=== PATIENT | male | born 1970 | race African-American/Black ===

== ENCOUNTER 2016-11-23 08:24 | Inpatient (IN) | payer MEDICAID ==
[~2016-11-23] VITALS: Ht 182.9 cm; Wt 116.4 kg
[2016-11-23] VITALS (30 sets, daily range): BP systolic 92–170; BP diastolic 37–128
[~2016-11-23 08:24] MED LIST: ALBUAER3 IN; BECL0.07 INH; FURO20TA PO; GUA5DMLQ PO; LEVO500T3 PO; METH4PAK PO; MONT10TA23 PO
[2016-11-23] MEDS ORDERED: IPRATROPIUM BROM 0.5 MG/2.5ML INH SOL NEB ONE (08:45)
[2016-11-23] MEDS ORDERED: ALBUTEROL SULF 2.5 MG/0.5ML(0.5%) NEB SOLN NEB ONE ×2 (08:45→12:45)
[2016-11-23] MEDS ORDERED: methylPREDNISolone SOD SUCC 125 MG/2 ML VL IV ONE (08:45)
[2016-11-23 08:54] LABS: Eosinophils # (auto) 0 uL; Eosinophils % (auto) 0.2 % (0.0-7.0); Monocytes # (auto) 0.1 uL; Platelet Count (auto) 232 10^3/uL (140-450)
[2016-11-23] MEDS ORDERED: cefTRIAXone 1GM/50ML D5W 50 ML IV ONE (09:00)
[2016-11-23 09:01] LABS: Basophils # (auto) 0.2 uL; Basophils % (auto) 1.6 % (0.0-2.0); Hematocrit 51.8 % (41.0-53.0); Hemoglobin 16.4 g/dL (13.5-17.5); Lymphocytes # (auto) 0.5 uL; Lymphocytes % (auto) 3.9 % (10.0-50.0); Mean Corpuscular Hemoglobin 28.3 pg (28.0-32.0); Mean Corpuscular Hgb Conc. 31.8 g/dL (32.0-36.0); Mean Platelet Volume 9.3 fL (7.4-10.4); Monocytes % (auto) 0.6 % (0.0-12.0); Neutrophils # (auto) 10.8 uL; Neutrophils % (auto) 93.7 % (37.0-80.0); SUSPECT VIEW TRANSMISSION; White Blood Cell 11.5 10^3/uL (4.4-10.8)
[2016-11-23 09:15] LABS: Albumin 4.1 g/dL (3.4-5.0); Anion Gap 7 (5-15); Aspartate Aminotransferase 13 U/L (15-37); BUN/Creatinine Ratio 14.4; Blood Urea Nitrogen 13 mg/dL (7-18); Carbon Dioxide 35 mmol/L (21-32); Chloride 98 mmol/L (98-107); GFR African American 116 mL/min; GFR Non-African American 96 mL/min; Glucose 202 mg/dL (74-106); Magnesium 2.4 mg/dL (1.6-2.6); Potassium 3.9 mmol/L (3.5-5.1); Sodium 140 mmol/L (136-145)
[2016-11-23] MEDS ORDERED: FUROSEMIDE 40 MG/4 ML VIAL IV ONE (09:15)
[2016-11-23 09:20] LABS: Alkaline Phosphatase 63 U/L (45-117); Bilirubin, Total 0.3 mg/dL (0.2-1.0); Total Protein 8.3 g/dL (6.4-8.2)
[2016-11-23 09:45] LABS: B-Type Natriuretic Peptide 3.99 pg/mL (0-100)
[2016-11-23 10:06] LABS: Temperature: 21.9 C (20.0-25.0)
[2016-11-23] MEDS ORDERED: AZITHROMYCIN 500MG/D5W 250ML 250 ML IV ONE (10:15)
[2016-11-23] MEDS ORDERED: ETOMIDATE (2MG/ML) 20ML VIAL IV ONE ×2 (10:40→12:15)
[2016-11-23] MEDS ORDERED: SUCCINYLCHOLINE CHLORIDE 20 MG/ML 10ML VIAL IV ONE ×2 (10:40→12:15)
[2016-11-23] MEDS ORDERED: MIDAZOLAM DRIP 100 mg/100mL NS 100 ML IV ONE (10:48)
[2016-11-23] MEDS ORDERED: PROPOFOL 100 ML IV ONE (10:59)
[2016-11-23] MEDS ORDERED: SODIUM CHLORIDE 0.9% 1,000 ML IV ONE (12:15)
[2016-11-23] MEDS ORDERED: ALBUTEROL SULF 2.5 MG/0.5ML(0.5%) NEB SOLN ONE (12:37)
[2016-11-23] MEDS ORDERED: MIDAZOLAM DRIP 100 mg/100mL NS 100 ML IV SCH (12:45)
[2016-11-23] MEDS ORDERED: PROPOFOL 100 ML IV SCH (12:45)
[2016-11-23] MEDS ORDERED: DEXTROSE (50%) 50ML SYRG IV PRN (13:00)
[2016-11-23] MEDS: fentaNYL Drip 2500mCg/250mlNS 250 ML IV SCH (13:14)
[2016-11-23] MEDS ORDERED: NITROGLYCERIN 0.4 MG SL TAB SL PRN (13:15)
[2016-11-23] MEDS ORDERED: ONDANSETRON HCL 4 MG/2 ML VIAL IV PRN (13:15)
[2016-11-23] MEDS ORDERED: FAMOTIDINE (10MG/ML) 2ML VL IV ONE (13:15)
[2016-11-23] MEDS ORDERED: MORPHINE SULF INJ 2 MG/ML SYRINGE 1ML IV PRN ×2 (13:15)
[2016-11-23] MEDS ORDERED: PANTOPRAZOLE SODIUM 40 MG/10 ML VIAL IV ONE (13:15)
[2016-11-23] MEDS: MIDAZOLAM DRIP 100 mg/100mL NS 100 ML IV SCH ×3 (13:16→22:24)
[2016-11-23] MEDS: PROPOFOL 100 ML IV SCH ×2 (13:16→22:15)
[2016-11-23] MEDS: IPRATROPIUM BROM 0.5 MG/2.5ML INH SOL NEB SCH ×3 (14:00→22:15)
[2016-11-23] MEDS: ALBUTEROL SULF 2.5 MG/0.5ML(0.5%) NEB SOLN NEB SCH ×3 (14:00→22:15)
[2016-11-23] MEDS: SODIUM CHLORIDE 0.9% 1,000 ML IV SCH ×2 (14:39→22:24)
[2016-11-23] MEDS: ENOXAPARIN SOD 40 MG/0.4 ML SYRINGE SC SCH (14:44)
[2016-11-23] MEDS ORDERED: methylPREDNISolone SOD SUCC 125 MG/2 ML VL IV SCH (15:00)
[2016-11-23] MEDS: MAGNESIUM SULFATE 1GM/100ML 100 ML IV SCH ×2 (15:02→16:09)
[2016-11-23 15:58] LABS: Urine Bilirubin Negative (Negative); Urine Blood Negative /uL (Negative); Urine Color Colorless (Yellow); Urine Glucose 4+ mg/dL (Normal); Urine Ketone Negative (Negative); Urine Nitrite Negative (Negative); Urine RBC 1 /hpf (0 - 3); Urine Urobilinogen Normal (Negative); Urine pH 5.5 (5.0-8.0)
[2016-11-23 16:08] LABS: REFLEX LACTIC ACID YES OR NO YES
[2016-11-23] MEDS ORDERED: NOREPINEPHRINE BITARTRATE 0 ML IV ONE (19:27)
[2016-11-23] MEDS: ACCU-CHEK COMFORT CURVE STRIP VI SCH (19:40)
[2016-11-23] MEDS: NOREPINEPHRINE BITARTRATE 32 MG in D5W 5% 218 ML IV SCH (19:50)
[2016-11-23] MEDS: ATRACURIUM BESYLATE 1,000 MG in D5W 5% 150 ML IV SCH ×2 (20:43→21:10)
[2016-11-23] MEDS: InsuLIN REG 1unit/0.01ml Soln (100units/ml) SC SCH (20:44)
[2016-11-23 20:54] LABS: Lactic Acid 10.5 mmol/L (0.4-2.0)
[2016-11-23 21:03] LABS: REFLEX LACTIC ACID YES OR NO YES
[2016-11-23] MEDS: FAMOTIDINE (10MG/ML) 2ML VL IV SCH (22:00)
[2016-11-24] VITALS (103 sets, daily range): BP systolic 71–166; BP diastolic 36–107
[2016-11-24] MEDS: InsuLIN REG 1unit/0.01ml Soln (100units/ml) SC SCH ×4 (00:25→17:34)
[2016-11-24] MEDS: ACCU-CHEK COMFORT CURVE STRIP VI SCH ×4 (00:28→17:31)
[2016-11-24] MEDS: PROPOFOL 100 ML IV SCH ×4 (00:28→21:18)
[2016-11-24] MEDS: IPRATROPIUM BROM 0.5 MG/2.5ML INH SOL NEB SCH ×6 (02:15→22:04)
[2016-11-24] MEDS: ALBUTEROL SULF 2.5 MG/0.5ML(0.5%) NEB SOLN NEB SCH ×6 (02:15→22:04)
[2016-11-24 03:37] LABS: Basophils # (auto) 0 uL; Basophils % (auto) 0.4 % (0.0-2.0); Eosinophils # (auto) 0 uL; Hematocrit 46.5 % (41.0-53.0); Hemoglobin 14.9 g/dL (13.5-17.5); Lymphocytes # (auto) 0.4 uL; Lymphocytes % (auto) 3.2 % (10.0-50.0); Mean Corpuscular Hemoglobin 28.7 pg (28.0-32.0); Mean Corpuscular Hgb Conc. 32.1 g/dL (32.0-36.0); Mean Corpuscular Volume 89.5 fL (80.0-100.0); Mean Platelet Volume 9.4 fL (7.4-10.4); Monocytes # (auto) 0.8 uL; Monocytes % (auto) 6.9 % (0.0-12.0); Neutrophils # (auto) 10.4 uL; Neutrophils % (auto) 89.5 % (37.0-80.0); Platelet Count (auto) 232 10^3/uL (140-450); Red Cell Distribution Width 15.3 % (11.6-16.0); White Blood Cell 11.6 10^3/uL (4.4-10.8)
[2016-11-24 03:54] LABS: Albumin 3.5 g/dL (3.4-5.0); BUN/Creatinine Ratio 11.1; Calcium 7.4 mg/dL (8.5-10.1); Potassium 3.5 mmol/L (3.5-5.1)
[2016-11-24] MEDS: MIDAZOLAM DRIP 100 mg/100mL NS 100 ML IV SCH ×2 (03:54→21:18)
[2016-11-24 03:56] LABS: Bilirubin, Total 0.4 mg/dL (0.2-1.0); Total Protein 7.1 g/dL (6.4-8.2)
[2016-11-24] MEDS: fentaNYL Drip 2500mCg/250mlNS 250 ML IV SCH (04:26)
[2016-11-24] MEDS: BUDESONIDE (INHALATION) 0.5 MG/2 ML NEB NEB SCH ×2 (06:07→22:00)
[2016-11-24] MEDS: cefTRIAXone 1GM/50ML D5W 50 ML IV SCH (09:10)
[2016-11-24] MEDS: AZITHROMYCIN 500MG/D5W 250ML 250 ML IV SCH (10:00)
[2016-11-24] MEDS: PANTOPRAZOLE SODIUM 40 MG/10 ML VIAL IV SCH (10:00)
[2016-11-24] MEDS: ENOXAPARIN SOD 40 MG/0.4 ML SYRINGE SC SCH (10:00)
[2016-11-24] MEDS: FAMOTIDINE (10MG/ML) 2ML VL IV SCH ×2 (10:00→21:28)
[2016-11-24] MEDS ORDERED: DEXTROSE (50%) 50ML SYRG IV PRN (10:15)
[2016-11-24] MEDS ORDERED: Diabetisource AC 1 Liter GT SCH (10:30)
[2016-11-24] MEDS ORDERED: MONTELUKAST SODIUM 10 MG TAB GT ONE (10:45)
[2016-11-24] MEDS: FREE WATER GT SCH ×2 (11:26→17:39)
[2016-11-24] MEDS ORDERED: ALUMCHW6 PO (12:11)
[2016-11-24] MEDS ORDERED: CANA100T OR (12:11)
[2016-11-24] MEDS ORDERED: PRE1T PO (12:11)
[2016-11-24] MEDS: METOCLOPRAMIDE HCL 5MG/ml INJ 2ml VIAL IV SCH ×2 (13:27→21:28)
[2016-11-24] MEDS: NOREPINEPHRINE BITARTRATE 32 MG in D5W 5% 218 ML IV SCH (19:15)
[2016-11-24] MEDS: ATRACURIUM BESYLATE 1,000 MG in D5W 5% 150 ML IV SCH (20:43)
[2016-11-25] VITALS (105 sets, daily range): BP systolic 100–144; BP diastolic 44–88
[2016-11-25] MEDS: ACCU-CHEK COMFORT CURVE STRIP VI SCH ×4 (01:30→18:03)
[2016-11-25] MEDS: InsuLIN REG 1unit/0.01ml Soln (100units/ml) SC SCH ×4 (01:35→18:06)
[2016-11-25] MEDS: IPRATROPIUM BROM 0.5 MG/2.5ML INH SOL NEB SCH ×5 (01:49→18:40)
[2016-11-25] MEDS: ALBUTEROL SULF 2.5 MG/0.5ML(0.5%) NEB SOLN NEB SCH ×5 (01:49→18:40)
[2016-11-25] MEDS: PROPOFOL 100 ML IV SCH ×7 (02:59→20:55)
[2016-11-25] MEDS: fentaNYL Drip 2500mCg/250mlNS 250 ML IV SCH ×2 (02:59→15:03)
[2016-11-25] MEDS: MIDAZOLAM DRIP 100 mg/100mL NS 100 ML IV SCH ×3 (02:59→21:45)
[2016-11-25 04:00] LABS: Basophils # (auto) 0 uL; Basophils % (auto) 0.1 % (0.0-2.0); Eosinophils # (auto) 0.1 uL; Eosinophils % (auto) 0.5 % (0.0-7.0); Hematocrit 44.8 % (41.0-53.0); Hemoglobin 14.8 g/dL (13.5-17.5); Lymphocytes # (auto) 0.7 uL; Lymphocytes % (auto) 6.2 % (10.0-50.0); Mean Corpuscular Hemoglobin 29.2 pg (28.0-32.0); Mean Corpuscular Hgb Conc. 33.1 g/dL (32.0-36.0); Mean Corpuscular Volume 88.2 fL (80.0-100.0); Monocytes # (auto) 0.8 uL; Monocytes % (auto) 7.5 % (0.0-12.0); Neutrophils # (auto) 9.4 uL; Neutrophils % (auto) 85.7 % (37.0-80.0); Platelet Count (auto) 203 10^3/uL (140-450); Red Cell Distribution Width 15.1 % (11.6-16.0)
[2016-11-25 04:10] LABS: BUN/Creatinine Ratio 21.4; Calcium 7.2 mg/dL (8.5-10.1); Potassium 3.3 mmol/L (3.5-5.1)
[2016-11-25] MEDS: methylPREDNISolone SOD SUCC 40 MG/ML VL IV SCH ×2 (06:16→13:02)
[2016-11-25] MEDS: METOCLOPRAMIDE HCL 5MG/ml INJ 2ml VIAL IV SCH (06:16)
[2016-11-25] MEDS: FREE WATER GT SCH ×4 (06:17→18:00)
[2016-11-25] MEDS: cefTRIAXone 1GM/50ML D5W 50 ML IV SCH (09:15)
[2016-11-25] MEDS: ATRACURIUM BESYLATE 1,000 MG in D5W 5% 150 ML IV SCH (09:50)
[2016-11-25] MEDS: FAMOTIDINE (10MG/ML) 2ML VL IV SCH ×2 (09:52→21:23)
[2016-11-25] MEDS: ENOXAPARIN SOD 40 MG/0.4 ML SYRINGE SC SCH (09:52)
[2016-11-25] MEDS: MONTELUKAST SODIUM 10 MG TAB GT SCH (09:52)
[2016-11-25] MEDS: PANTOPRAZOLE SODIUM 40 MG/10 ML VIAL IV SCH (09:52)
[2016-11-25] MEDS: AZITHROMYCIN 500MG/D5W 250ML 250 ML IV SCH (09:53)
[2016-11-25] MEDS ORDERED: LORATADINE 10 MG TAB GT SCH (10:00)
[2016-11-25] MEDS: BUDESONIDE (INHALATION) 0.5 MG/2 ML NEB NEB SCH ×2 (10:54→18:40)
[2016-11-25] MEDS ORDERED: methylPREDNISolone SOD SUCC 40 MG/ML VL IV SCH (18:00)
[2016-11-25] MEDS ORDERED: KETAMINE HCL 50 MG/ML 10ML VIAL IV SCH (19:45)
[2016-11-25] MEDS ORDERED: MAGNESIUM SULFATE 1GM/100ML 100 ML IV ONE (20:00)
[2016-11-25] MEDS: KETAMINE HCL 500 MG in SODIUM CHL 0.9% 490 ML IV SCH (20:54)
[2016-11-25] MEDS ORDERED: methylPREDNISolone SOD SUCC 125 MG/2 ML VL IV ONE (21:00)
[2016-11-25] MEDS: NOREPINEPHRINE BITARTRATE 32 MG in D5W 5% 218 ML IV SCH (21:09)
[2016-11-26] VITALS (102 sets, daily range): BP systolic 123–167; BP diastolic 61–103
[2016-11-26] MEDS: ACCU-CHEK COMFORT CURVE STRIP VI SCH ×5 (00:24→23:53)
[2016-11-26] MEDS: PROPOFOL 100 ML IV SCH ×6 (00:24→21:45)
[2016-11-26] MEDS: InsuLIN REG 1unit/0.01ml Soln (100units/ml) SC SCH ×5 (00:29→23:59)
[2016-11-26] MEDS: ALBUTEROL SULF 2.5 MG/0.5ML(0.5%) NEB SOLN NEB PRN ×6 (02:12→18:44)
[2016-11-26] MEDS: fentaNYL Drip 2500mCg/250mlNS 250 ML IV SCH (02:30)
[2016-11-26] MEDS: MIDAZOLAM DRIP 100 mg/100mL NS 100 ML IV SCH ×2 (02:31→12:30)
[2016-11-26 03:53] LABS: Basophils # (auto) 0 uL; Basophils % (auto) 0.2 % (0.0-2.0); Eosinophils # (auto) 0 uL; Eosinophils % (auto) 0.1 % (0.0-7.0); Hematocrit 45.7 % (41.0-53.0); Hemoglobin 14.8 g/dL (13.5-17.5); Lymphocytes # (auto) 0.2 uL; Lymphocytes % (auto) 2.1 % (10.0-50.0); Mean Corpuscular Hemoglobin 28.8 pg (28.0-32.0); Mean Corpuscular Hgb Conc. 32.4 g/dL (32.0-36.0); Mean Platelet Volume 9.8 fL (7.4-10.4); Monocytes # (auto) 0.2 uL; Monocytes % (auto) 1.8 % (0.0-12.0); Neutrophils # (auto) 11.5 uL; Neutrophils % (auto) 95.8 % (37.0-80.0); Platelet Count (auto) 209 10^3/uL (140-450); Red Cell Distribution Width 15.1 % (11.6-16.0)
[2016-11-26] MEDS: methylPREDNISolone SOD SUCC 40 MG/ML VL IV SCH ×4 (03:53→21:44)
[2016-11-26 04:12] LABS: Albumin 3.3 g/dL (3.4-5.0); BUN/Creatinine Ratio 27.2; Bilirubin, Total 0.4 mg/dL (0.2-1.0); Calcium 7.7 mg/dL (8.5-10.1); Magnesium 3.6 mg/dL (1.6-2.6); Potassium 4.7 mmol/L (3.5-5.1); Total Protein 7.1 g/dL (6.4-8.2)
[2016-11-26 04:34] LABS: INR 1.03 (0.9-1.15); Prothrombin Time 10.6 sec (9.37-12.3)
[2016-11-26] MEDS: FREE WATER GT SCH ×5 (05:16→23:53)
[2016-11-26] MEDS: BUDESONIDE (INHALATION) 0.5 MG/2 ML NEB NEB PRN ×2 (06:14→18:44)
[2016-11-26] MEDS: cefTRIAXone 1GM/50ML D5W 50 ML IV SCH (08:07)
[2016-11-26] MEDS: MONTELUKAST SODIUM 10 MG TAB GT SCH (09:21)
[2016-11-26] MEDS: PANTOPRAZOLE SODIUM 40 MG/10 ML VIAL IV SCH (09:22)
[2016-11-26] MEDS: ENOXAPARIN SOD 40 MG/0.4 ML SYRINGE SC SCH (09:22)
[2016-11-26] MEDS: FAMOTIDINE (10MG/ML) 2ML VL IV SCH ×2 (09:22→21:44)
[2016-11-26] MEDS: AZITHROMYCIN 500MG/D5W 250ML 250 ML IV SCH (09:24)
[2016-11-26] MEDS: KETAMINE HCL 500 MG in SODIUM CHL 0.9% 490 ML IV SCH (12:28)
[2016-11-26] MEDS: METOCLOPRAMIDE HCL 5MG/ml INJ 2ml VIAL IV SCH ×2 (18:04→23:53)
[2016-11-26] MEDS: NOREPINEPHRINE BITARTRATE 32 MG in D5W 5% 218 ML IV SCH (19:15)
[2016-11-26] MEDS: ATRACURIUM BESYLATE 1,000 MG in D5W 5% 150 ML IV SCH (20:43)
[2016-11-27] VITALS (106 sets, daily range): BP systolic 131–167; BP diastolic 63–108
[2016-11-27] MEDS: PROPOFOL 100 ML IV SCH ×6 (01:25→23:42)
[2016-11-27] MEDS: methylPREDNISolone SOD SUCC 40 MG/ML VL IV SCH ×4 (03:49→22:12)
[2016-11-27] MEDS: METOCLOPRAMIDE HCL 5MG/ml INJ 2ml VIAL IV SCH ×4 (05:46→23:39)
[2016-11-27] MEDS: InsuLIN REG 1unit/0.01ml Soln (100units/ml) SC SCH ×4 (05:47→23:40)
[2016-11-27] MEDS: KETAMINE HCL 500 MG in SODIUM CHL 0.9% 490 ML IV SCH ×2 (05:48→23:48)
[2016-11-27] MEDS: FREE WATER GT SCH ×4 (05:48→23:44)
[2016-11-27] MEDS: ACCU-CHEK COMFORT CURVE STRIP VI SCH ×4 (05:48→23:41)
[2016-11-27] MEDS: ALBUTEROL SULF 2.5 MG/0.5ML(0.5%) NEB SOLN NEB PRN ×3 (06:12→13:41)
[2016-11-27] MEDS: BUDESONIDE (INHALATION) 0.5 MG/2 ML NEB NEB PRN (06:12)
[2016-11-27] MEDS: IPRATROPIUM BROM 0.5 MG/2.5ML INH SOL NEB PRN ×3 (06:12→13:41)
[2016-11-27] MEDS: cefTRIAXone 1GM/50ML D5W 50 ML IV SCH (09:06)
[2016-11-27] MEDS: FAMOTIDINE (10MG/ML) 2ML VL IV SCH ×2 (09:43→22:12)
[2016-11-27] MEDS: MONTELUKAST SODIUM 10 MG TAB GT SCH (09:43)
[2016-11-27] MEDS: PANTOPRAZOLE SODIUM 40 MG/10 ML VIAL IV SCH (09:43)
[2016-11-27] MEDS: ENOXAPARIN SOD 40 MG/0.4 ML SYRINGE SC SCH (09:44)
[2016-11-27] MEDS: AZITHROMYCIN 500MG/D5W 250ML 250 ML IV SCH (09:46)
[2016-11-27] MEDS: fentaNYL Drip 2500mCg/250mlNS 250 ML IV SCH (12:45)
[2016-11-27] MEDS: IPRATROPIUM BROM 0.5 MG/2.5ML INH SOL NEB SCH ×2 (18:20→22:12)
[2016-11-27] MEDS: BUDESONIDE (INHALATION) 0.5 MG/2 ML NEB NEB SCH (18:21)
[2016-11-27] MEDS: ALBUTEROL SULF 2.5 MG/0.5ML(0.5%) NEB SOLN NEB SCH ×2 (18:21→22:13)
[2016-11-27] MEDS: NOREPINEPHRINE BITARTRATE 32 MG in D5W 5% 218 ML IV SCH (18:52)
[2016-11-27] MEDS: ATRACURIUM BESYLATE 1,000 MG in D5W 5% 150 ML IV SCH (22:17)
[2016-11-28] VITALS (99 sets, daily range): BP systolic 119–163; BP diastolic 71–102
[2016-11-28] MEDS: IPRATROPIUM BROM 0.5 MG/2.5ML INH SOL NEB SCH ×6 (02:07→22:26)
[2016-11-28] MEDS: ALBUTEROL SULF 2.5 MG/0.5ML(0.5%) NEB SOLN NEB SCH ×6 (02:07→22:26)
[2016-11-28] MEDS: PROPOFOL 100 ML IV SCH ×5 (03:08→22:39)
[2016-11-28] MEDS: methylPREDNISolone SOD SUCC 40 MG/ML VL IV SCH ×4 (04:28→22:40)
[2016-11-28] MEDS: METOCLOPRAMIDE HCL 5MG/ml INJ 2ml VIAL IV SCH ×3 (05:39→18:17)
[2016-11-28] MEDS: ACCU-CHEK COMFORT CURVE STRIP VI SCH ×3 (05:43→18:24)
[2016-11-28] MEDS: InsuLIN REG 1unit/0.01ml Soln (100units/ml) SC SCH ×3 (05:49→18:23)
[2016-11-28] MEDS: FREE WATER GT SCH ×3 (05:49→18:24)
[2016-11-28] MEDS: BUDESONIDE (INHALATION) 0.5 MG/2 ML NEB NEB SCH ×2 (05:54→18:25)
[2016-11-28 05:56] LABS: Basophils # (auto) 0 uL; Basophils % (auto) 0.2 % (0.0-2.0); Eosinophils # (auto) 0 uL; Hematocrit 45.5 % (41.0-53.0); Hemoglobin 14.8 g/dL (13.5-17.5); Lymphocytes # (auto) 0.4 uL; Lymphocytes % (auto) 3.9 % (10.0-50.0); Mean Corpuscular Hemoglobin 28.8 pg (28.0-32.0); Mean Corpuscular Hgb Conc. 32.5 g/dL (32.0-36.0); Mean Corpuscular Volume 88.8 fL (80.0-100.0); Mean Platelet Volume 9.9 fL (7.4-10.4); Monocytes # (auto) 0.5 uL; Monocytes % (auto) 5.2 % (0.0-12.0); Neutrophils # (auto) 9.3 uL; Neutrophils % (auto) 90.7 % (37.0-80.0); Platelet Count (auto) 226 10^3/uL (140-450); Red Cell Distribution Width 15.4 % (11.6-16.0); White Blood Cell 10.3 10^3/uL (4.4-10.8)
[2016-11-28 06:13] LABS: BUN/Creatinine Ratio 42.7; Calcium 7.6 mg/dL (8.5-10.1); Potassium 4.6 mmol/L (3.5-5.1)
[2016-11-28] MEDS: FAMOTIDINE (10MG/ML) 2ML VL IV SCH ×2 (09:57→22:39)
[2016-11-28] MEDS: MONTELUKAST SODIUM 10 MG TAB GT SCH (09:57)
[2016-11-28] MEDS: PANTOPRAZOLE SODIUM 40 MG/10 ML VIAL IV SCH (09:57)
[2016-11-28] MEDS: AZITHROMYCIN 500MG/D5W 250ML 250 ML IV SCH (09:58)
[2016-11-28] MEDS: ENOXAPARIN SOD 40 MG/0.4 ML SYRINGE SC SCH (09:59)
[2016-11-28] MEDS: cefTRIAXone 1GM/50ML D5W 50 ML IV SCH (10:15)
[2016-11-28] MEDS: fentaNYL Drip 2500mCg/250mlNS 250 ML IV SCH (12:45)
[2016-11-28] MEDS: MIDAZOLAM DRIP 100 mg/100mL NS 100 ML IV SCH (12:55)
[2016-11-28] MEDS: NOREPINEPHRINE BITARTRATE 32 MG in D5W 5% 218 ML IV SCH (19:15)
[2016-11-28] MEDS: ATRACURIUM BESYLATE 1,000 MG in D5W 5% 150 ML IV SCH (20:43)
[2016-11-29] VITALS (100 sets, daily range): BP systolic 119–170; BP diastolic 65–126
[2016-11-29] MEDS: ACCU-CHEK COMFORT CURVE STRIP VI SCH ×5 (00:04→23:25)
[2016-11-29] MEDS: InsuLIN REG 1unit/0.01ml Soln (100units/ml) SC SCH ×5 (00:05→23:30)
[2016-11-29] MEDS: METOCLOPRAMIDE HCL 5MG/ml INJ 2ml VIAL IV SCH ×5 (00:06→23:23)
[2016-11-29] MEDS: FREE WATER GT SCH ×5 (00:07→23:24)
[2016-11-29] MEDS: ALBUTEROL SULF 2.5 MG/0.5ML(0.5%) NEB SOLN NEB SCH ×6 (02:06→22:14)
[2016-11-29] MEDS: IPRATROPIUM BROM 0.5 MG/2.5ML INH SOL NEB SCH ×6 (02:06→22:14)
[2016-11-29 03:49] LABS: Basophils # (auto) 0 uL; Basophils % (auto) 0.2 % (0.0-2.0); Eosinophils # (auto) 0 uL; Eosinophils % (auto) 0.1 % (0.0-7.0); Hematocrit 46.9 % (41.0-53.0); Hemoglobin 14.9 g/dL (13.5-17.5); Lymphocytes # (auto) 0.5 uL; Lymphocytes % (auto) 4.1 % (10.0-50.0); Mean Corpuscular Hemoglobin 28.5 pg (28.0-32.0); Mean Corpuscular Hgb Conc. 31.8 g/dL (32.0-36.0); Mean Corpuscular Volume 89.7 fL (80.0-100.0); Mean Platelet Volume 9.8 fL (7.4-10.4); Monocytes # (auto) 0.9 uL; Monocytes % (auto) 6.9 % (0.0-12.0); Neutrophils # (auto) 11.4 uL; Neutrophils % (auto) 88.7 % (37.0-80.0); Platelet Count (auto) 218 10^3/uL (140-450); Red Cell Distribution Width 15.2 % (11.6-16.0); White Blood Cell 12.8 10^3/uL (4.4-10.8)
[2016-11-29 04:04] LABS: INR 1.09 (0.9-1.15); Partial Thromboplastin Time 27.3 sec (22.64-33.71); Prothrombin Time 11.2 sec (9.37-12.3)
[2016-11-29 04:09] LABS: Calcium 7.5 mg/dL (8.5-10.1); Potassium 4.1 mmol/L (3.5-5.1)
[2016-11-29] MEDS: methylPREDNISolone SOD SUCC 40 MG/ML VL IV SCH ×4 (04:28→23:23)
[2016-11-29] MEDS: BUDESONIDE (INHALATION) 0.5 MG/2 ML NEB NEB SCH ×2 (06:14→18:27)
[2016-11-29 07:57] LABS: B-Type Natriuretic Peptide 20.62 pg/mL (0-100)
[2016-11-29 07:58] LABS: Temperature: 22.2 C (20.0-25.0)
[2016-11-29] MEDS: PROPOFOL 100 ML IV SCH ×2 (09:48→17:49)
[2016-11-29] MEDS: PANTOPRAZOLE SODIUM 40 MG/10 ML VIAL IV SCH (09:48)
[2016-11-29] MEDS: FAMOTIDINE (10MG/ML) 2ML VL IV SCH ×2 (09:49→23:23)
[2016-11-29] MEDS: ENOXAPARIN SOD 40 MG/0.4 ML SYRINGE SC SCH (09:49)
[2016-11-29] MEDS: cefTRIAXone 1GM/50ML D5W 50 ML IV SCH (09:50)
[2016-11-29] MEDS: AZITHROMYCIN 500MG/D5W 250ML 250 ML IV SCH (10:00)
[2016-11-29] MEDS: MONTELUKAST SODIUM 10 MG TAB GT SCH (10:01)
[2016-11-29] MEDS: fentaNYL Drip 2500mCg/250mlNS 250 ML IV SCH (12:45)
[2016-11-29] MEDS: MIDAZOLAM DRIP 100 mg/100mL NS 100 ML IV SCH (12:55)
[2016-11-29] MEDS: NOREPINEPHRINE BITARTRATE 32 MG in D5W 5% 218 ML IV SCH (17:57)
[2016-11-29] MEDS: KETAMINE HCL 500 MG in SODIUM CHL 0.9% 490 ML IV SCH (21:00)
[2016-11-30] VITALS (103 sets, daily range): BP systolic 92–178; BP diastolic 58–117
[2016-11-30] MEDS: IPRATROPIUM BROM 0.5 MG/2.5ML INH SOL NEB SCH ×6 (02:27→22:10)
[2016-11-30] MEDS: ALBUTEROL SULF 2.5 MG/0.5ML(0.5%) NEB SOLN NEB SCH ×6 (02:27→22:10)
[2016-11-30] MEDS: METOCLOPRAMIDE HCL 5MG/ml INJ 2ml VIAL IV SCH ×3 (05:44→18:37)
[2016-11-30] MEDS: methylPREDNISolone SOD SUCC 40 MG/ML VL IV SCH ×4 (05:44→21:59)
[2016-11-30] MEDS: FREE WATER GT SCH ×4 (05:45→23:50)
[2016-11-30] MEDS: ACCU-CHEK COMFORT CURVE STRIP VI SCH ×3 (05:45→18:05)
[2016-11-30] MEDS: InsuLIN REG 1unit/0.01ml Soln (100units/ml) SC SCH ×3 (05:53→18:00)
[2016-11-30] MEDS: cefTRIAXone 1GM/50ML D5W 50 ML IV SCH (09:00)
[2016-11-30] MEDS: ENOXAPARIN SOD 40 MG/0.4 ML SYRINGE SC SCH (10:14)
[2016-11-30] MEDS: MONTELUKAST SODIUM 10 MG TAB GT SCH (10:14)
[2016-11-30] MEDS: PANTOPRAZOLE SODIUM 40 MG/10 ML VIAL IV SCH (10:14)
[2016-11-30] MEDS: FAMOTIDINE (10MG/ML) 2ML VL IV SCH ×2 (10:14→21:59)
[2016-11-30] MEDS: AZITHROMYCIN 500MG/D5W 250ML 250 ML IV SCH (10:15)
[2016-11-30] MEDS: BUDESONIDE (INHALATION) 0.5 MG/2 ML NEB NEB SCH ×2 (10:48→18:13)
[2016-11-30] MEDS ORDERED: MORPHINE SULF INJ 2 MG/ML SYRINGE 1ML IV PRN ×2 (11:00)
[2016-11-30] MEDS ORDERED: VALSARTAN 80 MG TAB PO ONE (11:00)
[2016-11-30] MEDS ORDERED: fentaNYL Drip 2500mCg/250mlNS 250 ML IV SCH (12:45)
[2016-11-30] MEDS ORDERED: MIDAZOLAM DRIP 100 mg/100mL NS 100 ML IV SCH (12:55)
[2016-12-01] VITALS (48 sets, daily range): BP systolic 125–167; BP diastolic 69–100
[2016-12-01] MEDS: InsuLIN REG 1unit/0.01ml Soln (100units/ml) SC SCH ×4 (00:21→21:13)
[2016-12-01] MEDS: METOCLOPRAMIDE HCL 5MG/ml INJ 2ml VIAL IV SCH ×2 (00:23→06:25)
[2016-12-01] MEDS: ACCU-CHEK COMFORT CURVE STRIP VI SCH ×4 (00:24→20:23)
[2016-12-01] MEDS ORDERED: METOPROLOL TARTRATE 25 MG TAB PO ONE (00:45)
[2016-12-01] MEDS ORDERED: TEMAZEPAM 15 MG CAP PO ONE (01:04)
[2016-12-01] MEDS: IPRATROPIUM BROM 0.5 MG/2.5ML INH SOL NEB SCH ×6 (02:00→23:01)
[2016-12-01] MEDS: ALBUTEROL SULF 2.5 MG/0.5ML(0.5%) NEB SOLN NEB SCH ×6 (02:00→23:01)
[2016-12-01] MEDS: methylPREDNISolone SOD SUCC 40 MG/ML VL IV SCH ×4 (04:10→21:11)
[2016-12-01] MEDS: FREE WATER GT SCH (06:14)
[2016-12-01] MEDS: ENOXAPARIN SOD 40 MG/0.4 ML SYRINGE SC SCH (10:44)
[2016-12-01] MEDS: MONTELUKAST SODIUM 10 MG TAB GT SCH (10:45)
[2016-12-01] MEDS: VALSARTAN 80 MG TAB PO SCH (10:45)
[2016-12-01] MEDS: cefTRIAXone 1GM/50ML D5W 50 ML IV SCH (10:45)
[2016-12-01] MEDS: AZITHROMYCIN 500MG/D5W 250ML 250 ML IV SCH (10:45)
[2016-12-01 11:35] LABS: Basophils # (auto) 0 uL; Basophils % (auto) 0.1 % (0.0-2.0); Eosinophils # (auto) 0 uL; Hematocrit 50.3 % (41.0-53.0); Hemoglobin 16.1 g/dL (13.5-17.5); Lymphocytes # (auto) 0.8 uL; Lymphocytes % (auto) 5.8 % (10.0-50.0); Mean Corpuscular Hemoglobin 28.2 pg (28.0-32.0); Mean Corpuscular Hgb Conc. 32.1 g/dL (32.0-36.0); Mean Corpuscular Volume 87.8 fL (80.0-100.0); Mean Platelet Volume 9.9 fL (7.4-10.4); Monocytes # (auto) 0.7 uL; Monocytes % (auto) 4.5 % (0.0-12.0); Neutrophils # (auto) 13.1 uL; Neutrophils % (auto) 89.6 % (37.0-80.0); Platelet Count (auto) 218 10^3/uL (140-450); Red Cell Distribution Width 14.7 % (11.6-16.0); White Blood Cell 14.6 10^3/uL (4.4-10.8)
[2016-12-01 12:03] LABS: BUN/Creatinine Ratio 33.8; Calcium 8.6 mg/dL (8.5-10.1)
[2016-12-01] MEDS: HYDROcodone-ACET 5/325MG TAB PO PRN ×3 (14:02→23:31)
[2016-12-01] MEDS: BUDESONIDE (INHALATION) 0.5 MG/2 ML NEB NEB SCH ×2 (14:03→19:32)
[2016-12-01] MEDS: FAMOTIDINE (10MG/ML) 2ML VL IV SCH (20:24)
[2016-12-01] MEDS: PANTOPRAZOLE SODIUM 40 MG/10 ML VIAL IV SCH (20:25)
[2016-12-02] MEDS: ACCU-CHEK COMFORT CURVE STRIP VI SCH ×5 (00:11→23:18)
[2016-12-02] MEDS ORDERED: TEMAZEPAM 15 MG CAP PO ONE (01:00)
[2016-12-02] MEDS: IPRATROPIUM BROM 0.5 MG/2.5ML INH SOL NEB SCH ×6 (02:08→22:00)
[2016-12-02] MEDS: ALBUTEROL SULF 2.5 MG/0.5ML(0.5%) NEB SOLN NEB SCH ×6 (02:09→22:00)
[2016-12-02 05:34] LABS: Basophils # (auto) 0 uL; Basophils % (auto) 0.1 % (0.0-2.0); Eosinophils # (auto) 0 uL; Eosinophils % (auto) 0.1 % (0.0-7.0); Hematocrit 50.4 % (41.0-53.0); Hemoglobin 16.1 g/dL (13.5-17.5); Lymphocytes # (auto) 0.8 uL; Lymphocytes % (auto) 5.3 % (10.0-50.0); Mean Corpuscular Hgb Conc. 31.9 g/dL (32.0-36.0); Mean Corpuscular Volume 87.7 fL (80.0-100.0); Mean Platelet Volume 9.6 fL (7.4-10.4); Monocytes # (auto) 0.8 uL; Monocytes % (auto) 5.7 % (0.0-12.0); Neutrophils # (auto) 12.9 uL; Neutrophils % (auto) 88.8 % (37.0-80.0); Platelet Count (auto) 193 10^3/uL (140-450); Red Cell Distribution Width 14.4 % (11.6-16.0); White Blood Cell 14.5 10^3/uL (4.4-10.8)
[2016-12-02 05:44] VITALS: BP 128/77
[2016-12-02] MEDS: methylPREDNISolone SOD SUCC 40 MG/ML VL IV SCH ×3 (05:44→21:56)
[2016-12-02] MEDS: InsuLIN REG 1unit/0.01ml Soln (100units/ml) SC SCH ×5 (05:44→23:17)
[2016-12-02 05:53] LABS: BUN/Creatinine Ratio 33.3; Calcium 8.1 mg/dL (8.5-10.1); Potassium 3.9 mmol/L (3.5-5.1)
[2016-12-02] MEDS: BUDESONIDE (INHALATION) 0.5 MG/2 ML NEB NEB SCH ×2 (07:18→22:00)
[2016-12-02 09:00] VITALS: BP 149/99
[2016-12-02] MEDS: PANTOPRAZOLE 40 MG TAB PO SCH (09:16)
[2016-12-02] MEDS: cefTRIAXone 1GM/50ML D5W 50 ML IV SCH (09:16)
[2016-12-02] MEDS: ENOXAPARIN SOD 40 MG/0.4 ML SYRINGE SC SCH (09:16)
[2016-12-02] MEDS: MONTELUKAST SODIUM 10 MG TAB GT SCH (09:16)
[2016-12-02] MEDS: VALSARTAN 80 MG TAB PO SCH (09:18)
[2016-12-02] MEDS: AZITHROMYCIN 500MG/D5W 250ML 250 ML IV SCH (10:00)
[2016-12-02] MEDS ORDERED: LORazepam 0.5 MG TAB PO PRN (12:30)
[2016-12-02 13:00] VITALS: BP 146/92
[2016-12-02 16:47] VITALS: BP 162/94
[2016-12-02 22:20] VITALS: BP 140/80
[2016-12-03 00:01] VITALS: BP 140/80
[2016-12-03] MEDS: IPRATROPIUM BROM 0.5 MG/2.5ML INH SOL NEB SCH ×4 (02:00→19:00)
[2016-12-03] MEDS: ALBUTEROL SULF 2.5 MG/0.5ML(0.5%) NEB SOLN NEB SCH ×4 (02:00→19:00)
[2016-12-03] MEDS: InsuLIN REG 1unit/0.01ml Soln (100units/ml) SC SCH (05:35)
[2016-12-03] MEDS: ACCU-CHEK COMFORT CURVE STRIP VI SCH (05:36)
[2016-12-03 05:37] VITALS: BP 135/86
[2016-12-03 09:00] VITALS: BP 126/87
[2016-12-03] MEDS ORDERED: VALS80TA42 PO (09:38)
[2016-12-03] MEDS: PANTOPRAZOLE 40 MG TAB PO SCH (09:51)
[2016-12-03] MEDS: VALSARTAN 80 MG TAB PO SCH (09:51)
[2016-12-03] MEDS: MONTELUKAST SODIUM 10 MG TAB GT SCH (09:51)
[2016-12-03] MEDS: ENOXAPARIN SOD 40 MG/0.4 ML SYRINGE SC SCH (09:51)
[2016-12-03] MEDS ORDERED: FLUT110A INH (09:56)
[2016-12-03] MEDS: BUDESONIDE (INHALATION) 0.5 MG/2 ML NEB NEB SCH (10:00)
[2016-12-03] MEDS ORDERED: methylPREDNISolone SOD SUCC 40 MG/ML VL IV SCH (10:00)
[2016-12-03] MEDS: ALBUTEROL SULF 2.5 MG/0.5ML(0.5%) NEB SOLN NEB PRN (10:36)
[2016-12-03] MEDS ORDERED: predniSONE 20 MG TAB PO SCH (22:00)
== END 2016-12-03 13:00 | disposition left against medical advice (07) | DRG 720 ==
LOC: EDBD 08:24 → ER 08:25 → TELE 08:26 → ICU WEST 18:21 → WEST WING 12-01 12:40
PROVIDERS: ADMIT Internal Medicine; ATTEND Internal Medicine
PROC: 5A1955Z Respiratory Ventilation, Greater than 96 Consecutive Hours (ICD-10-PCS; principal; 2016-11-23)
PROC: 0BH17EZ Insertion of Endotracheal Airway into Trachea, Via Natural or Artificial Opening (ICD-10-PCS; 2016-11-23)
PROC: 5A09357 Assistance with Respiratory Ventilation, Less than 24 Consecutive Hours, Continuous Positive Airway Pressure (ICD-10-PCS; 2016-11-23)
DX: A41.9 Sepsis, unspecified organism (principal); J96.21 Acute and chronic respiratory failure with hypoxia; R65.21 Severe sepsis with septic shock; J45.902 Unspecified asthma with status asthmaticus; J18.1 Lobar pneumonia, unspecified organism; I50.43 Acute on chronic combined systolic (congestive) and diastolic (congestive) heart failure; J44.0 Chronic obstructive pulmonary disease with (acute) lower respiratory infection; E87.2 Acidosis; J15.9 Unspecified bacterial pneumonia; I95.9 Hypotension, unspecified; K21.9 Gastro-esophageal reflux disease without esophagitis; E11.9 Type 2 diabetes mellitus without complications; E66.01 Morbid (severe) obesity due to excess calories; J44.1 Chronic obstructive pulmonary disease with (acute) exacerbation; E83.51 Hypocalcemia; J96.22 Acute and chronic respiratory failure with hypercapnia; F41.9 Anxiety disorder, unspecified; Z79.52 Long term (current) use of systemic steroids; Z83.3 Family history of diabetes mellitus; Z99.81 Dependence on supplemental oxygen; Z68.34 Body mass index [BMI] 34.0-34.9, adult
CPT/HCPCS: 36415; 36600; 71010; 74020; 80048; 80053; 81001; 82805; 82962; 83036; 83605; 83735; 83880; 84484; 85025; 85610; 85730; 87040; 87070; 87081; 87205; 87400; 93005; 94002; 94003; 94640; 94644; 94660; C9113; J0330; J0696; J1815; J2704; J3010; J3490; J7060